=== PATIENT | female | born 1980 | race Caucasian/White ===

== ENCOUNTER → 2018-01-09 | Outpatient (CLI) | payer SELFPAY ==
[~2018-01-09] MED LIST: ACE3 PO; ACE500 PO; ALBU1.257 IH; ALBU8.5H IH; BUTA-324 PO; CEF300 PO; CELE-1 PO; CEPHALEXIN; CIP500 PO; CIPR-214 PO; CIT20 PO; CLO5 PO; CLON-298 PO; CLON-388 PO; CLON0.5T66 PO; CYC10 PO; CYCL10TA29 PO; D ME PO; FIO PO; GUAI120L3 PO; HYDR-385 PO; HYDR115S2 PO; HYDR50CA47 PO; IBU600 PO; IBUP-1487 PO; KET10 PO; LANS30CA70 PO; LEVO750T44 PO; LOR5 PO; LOR5/325 PO; MET10 PO; METH4TAB66 PO; METR-160 PO; NIF10 PO; NIT100 PO; OMEPRAZOLE; ONDA4TAB PO; ONDA4TAB97 PO; OXYC-865 PO; PER PO; PHEN200T32 PO; PHENA200 PO; PHENERGAN; PRED20TA6 PO; PRO25 PO; PROM-110 PO; PROM50TA23 PO; PSEU120T69 PO; REGLAN; SERT-181 PO; SERT-184 PO; SULF-198 PO; SUMA50TA34 PO; TRA50 PO; TRAM-420 PO; TRAM100T8 PO; Work Note; [UNRECOGNIZED DRUG - CODE] PO
--- NOTE | 2018-01-09 10:39 | RADIOLOGY IMAGING REPORT ---
FACILITY: [facility] PATIENT NAME: Ree Dixon : 1980 MR: [id number] V: [id number] EXAM DATE: ORDERING PHYSICIAN: JUAN CAMARA TECHNOLOGIST: Location: [facility] - [place], [place] Patient: Ree Dixon : 1980 Visit/Account:[id number] Date of Sevice: 01/09/2018 Exam type: VENOUS DOPP LOW RIGHT EXTREMIT History: Calf pain and tenderness, right leg Comparison: None. Findings: The right lower extremity veins were imaged including the right common femoral vein, greater saphenou s vein, superficial femoral vein, popliteal vein, posterior tibial vein, peroneal vein and anterior t ibial vein revealing no evidence intraluminal thrombi. The veins were compressible and demonstrated augmentation IMPRESSION: 1. No sonographic evidence DVT involving the right lower extremity veins Results were called to JUAN CAMARA at 01/09/2018 10:34 AM. Report Dictated By: Nela Luna MD at 01/09/2018 10:31 AM Report E-Signed By: Nela Luna MD at 01/09/2018 10:34 AM WSN:[email or web address]
== END ==
LOC: RAD 09:14
PROVIDERS: ATTEND Nurse Practitioner Primary Care
DX: M79.661 Pain in right lower leg (principal)

== ENCOUNTER → 2018-02-12 | Outpatient (CLI) | payer SELFPAY | LOC: LAB 09:09 | PROVIDERS: ATTEND Nurse Practitioner Primary Care | DX: R39.9 Unspecified symptoms and signs involving the genitourinary system (principal) | CPT/HCPCS: 81001 ==

== ENCOUNTER 2018-02-22 07:29 | Emergency (ER) | payer SELFPAY ==
[~2018-02-22 07:29] MED LIST changes: +OXYC-373 PO
--- NOTE | 2018-02-22 07:38 | ER Report ---
History and Physical Time Seen By MD: 07:34 HPI/ROS CHIEF COMPLAINT: Headache HISTORY OF PRESENT ILLNESS: Patient is a 37-year-old female who presents to the emergency department for evaluation of severe generalized headache. She describes the pain as 10 out of 10. It was fairly sudden on onset last evening and associated with nausea. Patient states the pain is a squeezing type in character and radiates into the neck bilaterally. Patient has a history of chronic TMJ for which she was prescribed tramadol. She has been seen in the clinic according to electronic medical record this past week for upper back pain which she believes is related to work. She has been prescribed both hydrocodone and oxycodone for treatment of this pain. She presents however with headache. Patient states she has a long-standing history of migraines but states that this feels somewhat different than her typical migraine in that it is bilateral rather than unilateral. She further states she's not had a migraine in some time. Patient reports that she is allergic to Imitrex. Patient also describes that the discomfort and tightness around the head also "dugan". She denies fever however. REVIEW OF SYSTEMS: Constitutional: No fever, no chills. Eyes: No discharge. ENT: No sore throat. Cardiovascular: No chest pain, no palpitations. Respiratory: No cough, no shortness of breath. Gastrointestinal: No abdominal pain, no vomiting. Nausea Genitourinary: No hematuria. Musculoskeletal: No back pain. Skin: No rashes. Neurological: Headache Allergies: Coded Allergies: Penicillins (Verified Allergy, Mild, RASH, 02/22/18) sumatriptan (Verified Allergy, Mild, RASH, 02/22/18) Home Meds Active Scripts Ketorolac Tromethamine (KETOROLAC TROMETHAMINE) 10 Mg Tab, 10 MG PO Q6H Y for PAIN, #12 TAB 0 Refills Prov:TOÑO ESCOBAR MD 02/22/18 Ondansetron (ZOFRAN ODT) 4 Mg Tab.rapdis, 4 MG PO Q8H Y for NAUSEA, #20 TAB 0 Refills TAKE 1 TABLET BY MOUTH EVERY 12 HOURS Prov:TOÑO ESCOBAR MD 02/22/18 Oxycodone Hcl/Acetaminophen (OXYCODONE-ACETAMINOPHEN 5-325) 1 Each Tablet, 1-2 EACH PO Q6-8H Y for PAIN, #30 TAB 0 Refills Prov:JUAN CAMARA CHET Ashraf DNP 02/18/18 Sertraline Hcl (SERTRALINE HCL) 50 Mg Tablet, 3 TAB PO QDAY for 90 Days, #270 TAB 0 Refills Prov:JUAN CAMARA CHET Ashraf DNP 02/12/18 Clonazepam (CLONAZEPAM) 0.5 Mg Tablet, 0.5-1 TAB PO BID Y for ANXIETY, #30 TAB 1 Refill Prov:JAXJUAN FOSTER DNP, FNP-BC 02/11/18 Tramadol Hcl (TRAMADOL HCL) 50 Mg Tablet, 1-2 TAB PO BID Y for PAIN, #120 TAB 2 Refills May fill on or after 01/30/18. Prov:JUAN CAMARA DNP, FNP-BC 01/22/18 Discontinued Scripts Methylprednisolone (METHYLPREDNISOLONE) 4 Mg Tab.ds.pk, 4 MG PO DIRECTED, #1 PACK 0 Refills Prov:JUAN CAMARA DNP, FNP-BC 02/12/18 Ketorolac Tromethamine (KETOROLAC TROMETHAMINE) 10 Mg Tab, 1 TAB PO Q6-8H Y for PAIN, #30 TAB 2 Refills Prov:JUAN CAMARA DNP, FNP-BC 10/03/17 Hydrocodone Bit/Acetaminophen (HYDROCODON-ACETAMINOPHEN 5-325) 1 Each Tablet, 1- 2 EACH PO Q6-8H Y for PAIN, #30 TAB 0 Refills Prov:JUAN CAMARA DNP, FNP-BC 02/12/18 [Work Note] No Conflict Check Patient was seen in the office today. Please excuse from work this morning. Prov:JAXJUAN DNP, FNP-BC 02/12/18 Past Medical/Surgical History Past medical history significant for migraines, history of reactive airways disease, history of ovarian cysts history of chronic urinary tract infections, history of musculoskeletal pain history of anxiety and depression. Past surgical history for cholecystectomy, partial hysterectomy, tubal ligation Hx Smoking: No Smoking Status: Former Smoker Exposure to Second Hand Smoke?: No Hx Substance Use Disorder: No Hx Alcohol Use: No Constitutional Vital Sign - Last 24 Hours 02/22/18 02/22/18 02/22/18 02/22/18 07:33 07:34 07:59 08:00 Temp 97.8 Pulse 96 73 Resp 28 B/P (MAP) 124/85 (98) 124/85 102/77 (85) Pulse Ox 96 96 O2 Delivery Room Air 02/22/18 02/22/18 02/22/18 02/22/18 08:19 08:29 08:30 08:35 Pulse 72 79 B/P (MAP) 106/65 (79) Pulse Ox 97 98 O2 Flow Rate 2.0 02/22/18 02/22/18 02/22/18 09:00 09:05 09:23 Pulse 69 B/P (MAP) 94/49 (64) 94/51 (65) Pulse Ox 99 Intake and Output 02/22/18 02/22/18 02/23/18 15:00 23:00 07:00 Intake Total 1000 ml Balance 1000 ml Physical Exam General/Constitutional: Patient is awake, alert, appears uncomfortable secondary to pain Head: Normocephalic atraumatic. Eyes: Conjunctival clear, Pupils are equal and reactive to light. Extraocular muscles are intact and symmetrical. Sclera are clear and anicteric. Ears:External canals are clear. Tympanic membranes are clear with normal landmarks and light reflex. Nares: No rhinorrhea Oropharyngeal: Mucous membranes are moist. There is no pharyngeal erythema or exudate. Neck: Supple, no adenopathy. Cardiovascular: Heart is regular rate and rhythm without audible murmurs, rubs or gallops. Pulmonary: Lungs are clear to auscultation bilaterally. There are no wheezes, rales, or rhonchi. Chest rise is symmetrical Abdomen: Soft, nontender, no guarding or peritoneal signs. Extremities: No gross deformities, No peripheral cyanosis. Able to move all 4 extremities. Neuro: Alert and oriented X3, Cranial nerves 2 thru 12 are intact and symmetrical. Skin: No rashes, skin is warm dry and well perfused. Medical Decision Making Data Points Result Diagram: 02/22/18 0737 02/22/18 0737 Laboratory Hematology Test 02/22/18 07:37 02/22/18 08:47 Red Blood Count 4.31 M/uL (4.17-5.56) Mean Corpuscular Volume 87.4 fL (80.0-96.0) Mean Corpuscular Hemoglobin 29.8 pg (26.0-33.0) Mean Corpuscular Hemoglobin Concent 34.0 g/dL (32.0-36.0) Red Cell Distribution Width 13.4 % (11.5-14.5) Mean Platelet Volume 9.5 fL (7.2-11.1) Neutrophils (%) (Auto) 55.6 % (39.4-72.5) Lymphocytes (%) (Auto) 32.8 % (17.6-49.6) Monocytes (%) (Auto) 8.5 % (4.1-12.4) Eosinophils (%) (Auto) 2.4 % (0.4-6.7) Basophils (%) (Auto) 0.7 % (0.3-1.4) Nucleated RBC Relative Count (auto) 0.0 /100WBC Neutrophils # (Auto) 3.1 K/uL (2.0-7.4) Lymphocytes # (Auto) 1.8 K/uL (1.3-3.6) Monocytes # (Auto) 0.5 K/uL (0.3-1.0) Eosinophils # (Auto) 0.1 K/uL (0.0-0.5) Basophils # (Auto) 0.0 K/uL (0.0-0.1) Nucleated RBC Absolute Count (auto) 0.00 K/uL Sodium Level 144 mmol/L (137-145) Potassium Level 4.1 mmol/L (3.5-5.0) Chloride Level 107 mmol/L (98-107) Carbon Dioxide Level 25 mmol/L (22-31) Blood Urea Nitrogen 16 mg/dl (7-18) Creatinine 0.80 mg/dl (0.52-1.04) Glomerular Filtration Rate Calc > 60.0 Random Glucose 92 mg/dl (75-110) Calcium Level 9.0 mg/dl (8.4-10.2) Human Chorionic Gonadotropin, Qual Negative (NEGATIVE) Urine Color Yellow Urine Clarity Slightly-cloudy Urine pH 6.0 pH (4.8-9.5) Urine Specific [place] 1.016 Urine Protein Negative mg/dL (NEGATIVE) Urine Glucose (UA) Negative mg/dL (NEGATIVE) Urine Ketones Negative mg/dL (NEGATIVE) Urine Blood Negative (NEGATIVE) Urine Nitrite Negative (NEGATIVE) Urine Bilirubin Negative (NEGATIVE) Urine Urobilinogen Negative mg/dL (0.2-1.9) Urine Leukocyte Esterase Negative (NEGATIVE) Urine RBC <1 /HPF (0-2/HPF) Urine WBC 1 /HPF (0-5/HPF) Urine Squamous Epithelial Cells Many /LPF (</=FEW) Urine Bacteria Negative /HPF (NONE-FEW) Urine Mucus Few /HPF (NONE-FEW) Chemistry Test 02/22/18 07:37 02/22/18 08:47 White Blood Count 5.5 k/uL (4.5-11.0) Red Blood Count 4.31 M/uL (4.17-5.56) Hemoglobin 12.8 g/dL (12.0-16.0) Hematocrit 37.7 % (34.0-47.0) Mean Corpuscular Volume 87.4 fL (80.0-96.0) Mean Corpuscular Hemoglobin 29.8 pg (26.0-33.0) Mean Corpuscular Hemoglobin Concent 34.0 g/dL (32.0-36.0) Red Cell Distribution Width 13.4 % (11.5-14.5) Platelet Count 238 K/uL (150-450) Mean Platelet Volume 9.5 fL (7.2-11.1) Neutrophils (%) (Auto) 55.6 % (39.4-72.5) Lymphocytes (%) (Auto) 32.8 % (17.6-49.6) Monocytes (%) (Auto) 8.5 % (4.1-12.4) Eosinophils (%) (Auto) 2.4 % (0.4-6.7) Basophils (%) (Auto) 0.7 % (0.3-1.4) Nucleated RBC Relative Count (auto) 0.0 /100WBC Neutrophils # (Auto) 3.1 K/uL (2.0-7.4) Lymphocytes # (Auto) 1.8 K/uL (1.3-3.6) Monocytes # (Auto) 0.5 K/uL (0.3-1.0) Eosinophils # (Auto) 0.1 K/uL (0.0-0.5) Basophils # (Auto) 0.0 K/uL (0.0-0.1) Nucleated RBC Absolute Count (auto) 0.00 K/uL Glomerular Filtration Rate Calc > 60.0 Calcium Level 9.0 mg/dl (8.4-10.2) Human Chorionic Gonadotropin, Qual Negative (NEGATIVE) Urine Color Yellow Urine Clarity Slightly-cloudy Urine pH 6.0 pH (4.8-9.5) Urine Specific [place] 1.016 Urine Protein Negative mg/dL (NEGATIVE) Urine Glucose (UA) Negative mg/dL (NEGATIVE) Urine Ketones Negative mg/dL (NEGATIVE) Urine Blood Negative (NEGATIVE) Urine Nitrite Negative (NEGATIVE) Urine Bilirubin Negative (NEGATIVE) Urine Urobilinogen Negative mg/dL (0.2-1.9) Urine Leukocyte Esterase Negative (NEGATIVE) Urine RBC <1 /HPF (0-2/HPF) Urine WBC 1 /HPF (0-5/HPF) Urine Squamous Epithelial Cells Many /LPF (</=FEW) Urine Bacteria Negative /HPF (NONE-FEW) Urine Mucus Few /HPF (NONE-FEW) Urinalysis Test 02/22/18 08:47 Urine Color Yellow Urine Clarity Slightly-cloudy Urine pH 6.0 pH (4.8-9.5) Urine Specific [place] 1.016 Urine Protein Negative mg/dL (NEGATIVE) Urine Glucose (UA) Negative mg/dL (NEGATIVE) Urine Ketones Negative mg/dL (NEGATIVE) Urine Blood Negative (NEGATIVE) Urine Nitrite Negative (NEGATIVE) Urine Bilirubin Negative (NEGATIVE) Urine Urobilinogen Negative mg/dL (0.2-1.9) Urine Leukocyte Esterase Negative (NEGATIVE) Urine RBC <1 /HPF (0-2/HPF) Urine WBC 1 /HPF (0-5/HPF) Urine Squamous Epithelial Cells Many /LPF (</=FEW) Urine Bacteria Negative /HPF (NONE-FEW) Urine Mucus Few /HPF (NONE-FEW) EKG/Imaging Imaging FACILITY: [facility] PATIENT NAME: Ree Dixon : 1980 MR: [id number] V: [id number] EXAM DATE: ORDERING PHYSICIAN: TOÑO ESCOBAR TECHNOLOGIST: Location: [facility] [place] Patient: Ree Dixon : 1980 Visit/Account:[id number] Date of Sevice: 02/22/2018 CT Head without contrast INDICATION: Headache COMPARISON: CT head 07/28/2016 TECHNIQUE: Axial CT images were obtained through the brain from the skull base to the vertex without administration of IV contrast. Dose Lowering Technique: One of the following dose optimization techniques was utilized in the performance of this exam: Automated exposure control; adjustment of the mA and/ or kV according to the patient's size; or use of an iterative reconstruction technique. Specific details can be referenced in the facility's radiology CT exam operational policy FINDINGS: Normal ventricular size and configuration. No evidence of mass, mass effect or midline shift. There is no acute intracranial hemorrhage or acute territorial infarction. Lopez-white cortical interfaces are well defined. Visualized paranasal sinuses and mastoid air cells are clear of fluid and mucosal thickening. IMPRESSION: Negative unenhanced CT of the head for intracranial hemorrhage, brain mass lesion, or acute brain infarction. Report Dictated By: Rosita Cooley MD at 02/22/2018 8:45 AM Report E-Signed By: Rosita Cooley MD at 02/22/2018 8:47 AM WSN:[email or web address] ED Course/Re-evaluation Clinical Indication for ER IV: Hydration, IV Access ED Course 02/22/2018 7:59:15 am patient with headache at this time somewhat atypical for her usual migraines. Plan will be IV Toradol Reglan and Benadryl we will also give Ativan for muscle relaxation. We will check CBC electrolytes test and urine. We will perform CT scan of the head. Re-evaluation 02/22/2018 8:36:44 am patient reports nausea is completely resolved at this point she reports some improvement in headache symptoms and at the "edge has been taken off"still having a fair amount of discomfort. Awaiting official results of CT scan. Blood work is unremarkable. 02/22/2018 8:58:57 am patient feels improved after 4 mg of IV morphine. She states the nausea is still improved. Plan at this time we will discharge patient home with a prescription for Zofran along with prescription for nonsteroidal anti-inflammatory pain medication Decision to Disposition Date: February 22, 2018 Decision to Disposition Time: 08:59 Depart Departure Latest Vital Signs Vital Signs Date Time Temp Pulse Resp B/P (MAP) Pulse Ox O2 Delivery O2 Flow Rate FiO2 02/22/18 09:23 94/51 (65) 02/22/18 09:05 69 99 02/22/18 08:19 2.0 5/25/18 07:34 97.8 28 Room Air Impression: Primary Impression: Head ache Condition: Improved Disposition: HOME OR SELF-CARE Referrals: JUAN CAMARA DNP, [employer]-BC (PCP) 2 Days if symptoms persist New Scripts Ketorolac Tromethamine (KETOROLAC TROMETHAMINE) 10 Mg Tab 10 MG PO Q6H Y for PAIN, #12 TAB 0 Refills Prov: TOÑO ESCOBAR MD 02/22/18 Ondansetron (ZOFRAN ODT) 4 Mg Tab.rapdis 4 MG PO Q8H Y for NAUSEA, #20 TAB 0 Refills TAKE 1 TABLET BY MOUTH EVERY 12 HOURS Prov: TOÑO ESCOBAR MD 02/22/18 Patient Instructions: Acute Headache (ED) Additional Instructions: Take your medications as prescribed. If her symptoms do not improve in 48 hours follow-up with her primary care provider. If at any time if symptoms worsen or he develop fever I should be reevaluated in the emergency department immediately. Problem Qualifiers Primary Impression: Head ache Headache type: unspecified Headache chronicity pattern: acute headache Intractability: not intractable Qualified Codes: R51 - Headache TOÑO ESCOBAR MD February 22, 2018 07:38
[2018-02-22] MEDS ORDERED: METOCLOPRAMIDE 10 MG/2 ML SDV IVP ONE (07:55)
[2018-02-22] MEDS ORDERED: diphenhydrAMINE 50 MG/ML VIAL IVP ONE (07:55)
[2018-02-22] MEDS ORDERED: KETOROLAC 15 MG/ML VIAL IVP ONE (07:55)
[2018-02-22] MEDS ORDERED: LORazepam 2 MG/ML VIAL IVP ONE (07:55)
[2018-02-22 08:03] LABS: PLATELET COUNT, AUTOMATED 238 K/uL (150-450)
[2018-02-22] MEDS ORDERED: NS(*) 0.9% 1000 ML BAG 1,000 ML IV ONE (08:05)
[2018-02-22] MEDS ORDERED: MORPHINE 4 MG/ML SDV IVP ONE (08:40)
--- NOTE | 2018-02-22 08:52 | RADIOLOGY IMAGING REPORT ---
FACILITY: [facility] PATIENT NAME: Ree Dixon : 1980 MR: [id number] V: [id number] EXAM DATE: ORDERING PHYSICIAN: TOÑO ESCOBAR TECHNOLOGIST: [place] [facility] [place]e [place] : 1980 Visit/Account:[id number] Date of Sevice: 02/22/2018 CT Head without contrast INDICATION: Headache COMPARISON: CT head 07/28/2016 TECHNIQUE: Axial CT images were obtained through the brain from the skull base to the vertex without administration of IV contrast. Dose Lowering Technique: One of the following dose optimization techniques was utilized in the performance of this exam: Autom ated exposure control; adjustment of the mA and/or kV according to the patient's size; or use of an i terative reconstruction technique. Specific details can be referenced in the facility's radiology C T exam operational policy FINDINGS: Normal ventricular size and configuration. No evidence of mass, mass effect or midline s hift. There is no acute intracranial hemorrhage or acute territorial infarction. Lopez-white cortical interfaces are well defined. Visualized paranasal sinuses and mastoid air cells are clear of fluid and mucosal thickening. IMPRESSION: Negative unenhanced CT of the head for intracranial hemorrhage, brain mass lesion, or acute brain inf arction. Report Dictated By: Rosita Cooley MD at 02/22/2018 8:45 AM Report E-Signed By: Rosita Cooley MD at 02/22/2018 8:47 AM WSN:[email or web address]
[2018-02-22] MEDS ORDERED: ONDA4TAB PO (09:01)
[2018-02-22] MEDS ORDERED: KET10 PO (09:01)
[2018-02-22 09:23] VITALS: BP 94/51
[2018-02-27] MEDS ORDERED: Work Note (14:04)
[2018-02-27] MEDS ORDERED: KET10 PO (14:05)
== END 2018-02-22 09:23 | disposition home or self-care (01) ==
LOC: ER 07:30
DX: R51 Headache (principal)
CPT/HCPCS: 70450; 81001; 84703; 85025; 96361; 96374; 96375; 99284; J1885; J2060; J2270; J2765; J7030; 82310; 82374; 82435; 82565; 82947; 84132; 84295; 84520

== ENCOUNTER → 2018-02-26 | Outpatient (CLI) | payer SELFPAY ==
--- NOTE | 2018-02-26 23:44 | RADIOLOGY IMAGING REPORT ---
FACILITY: [facility] [place] PATIENT NAME: Ree Dixon : 1980 MR: [id number] V: [id number] EXAM DATE: ORDERING PHYSICIAN: JUAN CAMARA TECHNOLOGIST: Location: [facility] Patient: Ree Dixon : 1980 Visit/Account:[id number] Date of Sevice: 02/26/2018 CERVICAL SPINE MIN 4 VIEW HISTORY: Migraines since . Neck and upper back pain for 2 weeks. COMPARISON: CT cervical spine 04/12/2012. Thoracic spine x-rays were performed concurrently. TECHNIQUE: AP, right and left oblique oblique, odontoid, and lateral views of the cervical spine. FINDINGS: On the lateral view, C1 to the top of T1 are visible. There is straightening of the normal cervical lordosis. There is no fracture or dislocation. There is no listhesis. Prevertebral soft tiss ues are within normal limits. The odontoid is mildly limited in evaluation on the AP views due to pat ient's teeth and skull projecting over it. The lateral masses of C1 are well seated on C2. Neural for mile are patent. There is apparent mild narrowing of the left C3-4 neural foramen, although the appe arance may be positional. IMPRESSION: 1. Straightening of the normal cervical lordosis may be positional or due to muscle spasm. 2. Questionable mild narrowing of the left C3-4 neural foramen. 3. No acute osseous normality of the cervical spine. Report Dictated By: Mi Kelly at 02/26/2018 11:37 PM Report E-Signed By: Mi Kelly at 02/26/2018 11:41 PM WSN:[id number]
--- NOTE | 2018-02-27 00:12 | RADIOLOGY IMAGING REPORT ---
FACILITY: [facility] [place] PATIENT NAME: Ree Dixon : 1980 MR: [id number] V: [id number] EXAM DATE: ORDERING PHYSICIAN: JUAN CAMARA TECHNOLOGIST: Location: [facility] Patient: Ree Dixon : 1980 Visit/Account:[id number] Date of Sevice: 02/26/2018 THORACIC SPINE 2 VIEWS HISTORY: Migraine since . Neck and upper back pain for 2 weeks. COMPARISON: Chest x-ray 06/12/2016. CT cervical spine was performed concurrently. TECHNIQUE: AP and lateral views of the thoracic spine. FINDINGS: There is no fracture or dislocation. Vertebral body heights are maintained. No listhesis. T here is a mild leftward curvature of the lower thoracic spine, new. There is minimal degenerative farzaneh nge of the mid thoracic spine, unchanged. IMPRESSION: 1. No acute osseous abnormality of the thoracic spine. 2. Mild leftward curvature of the mid to lower thoracic spine. Report Dictated By: Mi Kelly at 02/26/2018 11:41 PM Report E-Signed By: Mi Kelly at 02/27/2018 12:09 AM WSN:[id number]
== END ==
LOC: RAD 17:11
PROVIDERS: ATTEND Nurse Practitioner Primary Care
DX: M48.02 Spinal stenosis, cervical region (principal)
CPT/HCPCS: 72050; 72072

== ENCOUNTER → 2018-09-06 | Outpatient (CLI) | payer SELFPAY ==
[~2018-09-06] MED LIST changes: -CLON-298 PO; +CLON-331 PO; +META-1 PO; -METR-160 PO; +METR500T54 PO
[2018-09-06 10:13] LABS: LDL CHOLESTEROL 51 mg/dl
== END ==
LOC: LAB 09:33
PROVIDERS: ATTEND Nurse Practitioner Primary Care
DX: Z13.220 Encounter for screening for lipoid disorders (principal); M26.629 Arthralgia of temporomandibular joint, unspecified side
CPT/HCPCS: 36415; 82040; 82247; 82310; 82374; 82435; 82465; 82565; 82947; 83718; 84075; 84132; 84155; 84295; 84450; 84460; 84478; 84520

== ENCOUNTER 2018-11-07 16:20 | Emergency (ER) | payer SELFPAY ==
[~2018-11-07 16:20] MED LIST changes: +BACL-1 PO; +METR500T15 PO; -METR500T54 PO; +OSE75 PO
--- NOTE | 2018-11-07 16:37 | ER Report ---
History and Physical Time Seen By MD: 16:29 Hx. of Stated Complaint: pt presents with n/v /d since sunday. Also has fever, sinus congestion. Her children all have been dx with flu A. Now has severe h/a HPI/ROS CHIEF COMPLAINT: Headache, TMJ pain, cough, nausea and vomiting. HISTORY OF PRESENT ILLNESS: 38-year-old female patient presents to emergency room with complaint of headache, TMJ pain, cough, nausea and vomiting. Patient states this been going on for the past 3 days. She states that her pain has been so bad she is not been able to keep any food down. She denies having any fevers or chills. Patient states her kids are home sick, she has one that a fever 103 and was diagnosed with influenza. She states the pain since so bad that she's not been able to take care of her daughter. Patient denies being able to take her medication. Patient states that she has had improvement in the past with morphine for her headaches. She states that her pain is an 8 out of 10. She states that his been nothing spilled due to keep her pain medication down. She typically takes tramadol at home. Patient states pain starts at her TMJ, goes to the back of her head and up to her forehead. REVIEW OF SYSTEMS: Respiratory: No cough, no dyspnea. Cardiovascular: No chest pain, no palpitations. Gastrointestinal: No vomiting, no abdominal pain. Musculoskeletal: As noted above Allergies: Coded Allergies: Penicillins (Verified Allergy, Mild, RASH, 11/07/18) sumatriptan (Verified Allergy, Mild, RASH, 11/07/18) Home Meds Active Scripts Tramadol Hcl (TRAMADOL HCL) 50 Mg Tablet, 1-2 TAB PO BID PRN for PAIN, #120 TAB 2 Refills Prov:JUAN CAMARA DNP [facility] 10/21/18 Baclofen (BACLOFEN) 10 Mg Tablet, 1 TAB PO BID, #60 TAB 0 Refills Prov:JUAN CAMARA DNP [facility] 10/14/18 Clonazepam (CLONAZEPAM) 0.5 Mg Tablet, 0.5-1 TAB PO BID PRN for ANXIETY, #45 TAB 2 Refills Prov:JUAN CAMARA DNP [facility] 07/22/18 Sertraline Hcl (SERTRALINE HCL) 50 Mg Tablet, 2 TAB PO QDAY for 90 Days, #270 TAB 0 Refills Prov:JUAN CAMARA DNP, [facility] 07/22/18 Discontinued Scripts Promethazine Hcl (PROMETHAZINE HCL) 25 Mg Tablet, 1 TAB PO Q8H PRN for NAUSEA/VOMITING, #5 TAB 0 Refills Prov:RONALDO HANSEN APRN [facility]- 11/07/18 Oseltamivir Phosphate (TAMIFLU) 75 Mg Cap, 1 CAP PO BID, #10 CAP 0 Refills Prov:RONALDO HANSEN APRN [facility] 11/07/18 Levofloxacin 750 Mg Tab (LEVAQUIN 750 MG TAB) 750 Mg Tablet, 1 TAB PO QDAY for 7 Days, #7 TAB 0 Refills Prov:JUAN CAMARA DNP, [facility] 10/14/18 Oxycodone Hcl/Acetaminophen (OXYCODONE-ACETAMINOPHEN 5-325) 1 Each Tablet, 1-2 TAB PO Q6-8H PRN for PAIN, #20 TAB 0 Refills Prov:JUAN CAMARA DNP, [facility] 10/14/18 Ketorolac Tromethamine (KETOROLAC TROMETHAMINE) 10 Mg Tab, 1 TAB PO Q6-8H PRN for PAIN, #30 TAB 2 Refills Prov:JUAN CAMARA DNP, [facility] 07/26/18 Past Medical/Surgical History Patient has a past medical history of migraines, asthma, cholecystitis, frequent UTI, severe TMJ, bilateral wrist fractures, depression, anxiety. Patient has a surgical history of cholecystectomy, hysterectomy, tubal ligation. Reviewed Nurses Notes: Yes Hx Smoking: No Smoking Status: Former Smoker Exposure to Second Hand Smoke?: No Hx Substance Use Disorder: No Hx Alcohol Use: No Constitutional Vital Sign - Last 24 Hours 11/07/18 11/07/18 11/07/18 11/07/18 16:25 16:26 16:30 16:50 Temp 97.7 Pulse 85 77 Resp 16 B/P (MAP) 115/72 115/72 (86) 106/71 (83) Pulse Ox 98 97 O2 Delivery Room Air 11/07/18 11/07/18 11/07/18 17:00 17:20 17:30 Pulse 83 B/P (MAP) 92/68 (76) 93/63 (73) Pulse Ox 100 Physical Exam General Appearance: The patient is alert, has no immediate need for airway protection and no current signs of toxicity. Respiratory: Chest is non tender, lungs are clear to auscultation. Cardiac: regular rate and rhythm Gastrointestinal: Abdomen is soft and non tender, no masses, bowel sounds normal. Musculoskeletal: Neck: Neck is supple and non tender. Extremities have full range of motion and are non tender. Skin: No rashes or lesions. Neuro: Patient is alert and oriented 4. DIFFERENTIAL DIAGNOSIS: After history and physical exam differential diagnosis was considered for headache including but not limited to subarachnoid hemorrhage, migraine headache, tension headache and infectious causes such as meningitis, pharyngitis and sinusitis. Medical Decision Making Data Points Result Diagram: 11/07/18 1714 11/07/18 1714 Laboratory Hematology Test 11/07/18 17:14 11/07/18 17:20 Red Blood Count 4.60 M/uL (4.17-5.56) Mean Corpuscular Volume 88.6 fL (80.0-96.0) Mean Corpuscular Hemoglobin 29.0 pg (26.0-33.0) Mean Corpuscular Hemoglobin Concent 32.7 g/dL (32.0-36.0) Red Cell Distribution Width 13.1 % (11.5-14.5) Mean Platelet Volume 10.6 fL (7.2-11.1) Neutrophils (%) (Auto) 59.3 % (39.4-72.5) Lymphocytes (%) (Auto) 31.1 % (17.6-49.6) Monocytes (%) (Auto) 6.6 % (4.1-12.4) Eosinophils (%) (Auto) 2.0 % (0.4-6.7) Basophils (%) (Auto) 1.0 % (0.3-1.4) Nucleated RBC Relative Count (auto) 0.0 /100WBC Neutrophils # (Auto) 2.6 K/uL (2.0-7.4) Lymphocytes # (Auto) 1.4 K/uL (1.3-3.6) Monocytes # (Auto) 0.3 K/uL (0.3-1.0) Eosinophils # (Auto) 0.1 K/uL (0.0-0.5) Basophils # (Auto) 0.0 K/uL (0.0-0.1) Nucleated RBC Absolute Count (auto) 0.00 K/uL Sodium Level 140 mmol/L (137-145) Potassium Level 4.0 mmol/L (3.5-5.0) Chloride Level 112 mmol/L (98-107) Carbon Dioxide Level 26 mmol/L (22-31) Blood Urea Nitrogen 12 mg/dl (7-18) Creatinine 0.70 mg/dl (0.52-1.04) Glomerular Filtration Rate Calc > 60.0 Random Glucose 81 mg/dl (75-110) Calcium Level 8.9 mg/dl (8.4-10.2) Total Bilirubin 1.0 mg/dl (0.2-1.3) Aspartate Amino Transf (AST/SGOT) 21 U/L (0-35) Alanine Aminotransferase (ALT/SGPT) 21 U/L (0-56) Alkaline Phosphatase 50 U/L (0-126) Total Protein 7.2 g/dl (6.3-8.2) Albumin 4.0 g/dl (3.5-5.0) Influenza Virus Type A (PCR) Negative (NEGATIVE) Influenza Virus Type B (PCR) Negative (NEGATIVE) Chemistry Test 11/07/18 17:14 11/07/18 17:20 White Blood Count 4.4 k/uL (4.5-11.0) Red Blood Count 4.60 M/uL (4.17-5.56) Hemoglobin 13.3 g/dL (12.0-16.0) Hematocrit 40.8 % (34.0-47.0) Mean Corpuscular Volume 88.6 fL (80.0-96.0) Mean Corpuscular Hemoglobin 29.0 pg (26.0-33.0) Mean Corpuscular Hemoglobin Concent 32.7 g/dL (32.0-36.0) Red Cell Distribution Width 13.1 % (11.5-14.5) Platelet Count 227 K/uL (150-450) Mean Platelet Volume 10.6 fL (7.2-11.1) Neutrophils (%) (Auto) 59.3 % (39.4-72.5) Lymphocytes (%) (Auto) 31.1 % (17.6-49.6) Monocytes (%) (Auto) 6.6 % (4.1-12.4) Eosinophils (%) (Auto) 2.0 % (0.4-6.7) Basophils (%) (Auto) 1.0 % (0.3-1.4) Nucleated RBC Relative Count (auto) 0.0 /100WBC Neutrophils # (Auto) 2.6 K/uL (2.0-7.4) Lymphocytes # (Auto) 1.4 K/uL (1.3-3.6) Monocytes # (Auto) 0.3 K/uL (0.3-1.0) Eosinophils # (Auto) 0.1 K/uL (0.0-0.5) Basophils # (Auto) 0.0 K/uL (0.0-0.1) Nucleated RBC Absolute Count (auto) 0.00 K/uL Glomerular Filtration Rate Calc > 60.0 Calcium Level 8.9 mg/dl (8.4-10.2) Total Bilirubin 1.0 mg/dl (0.2-1.3) Aspartate Amino Transf (AST/SGOT) 21 U/L (0-35) Alanine Aminotransferase (ALT/SGPT) 21 U/L (0-56) Alkaline Phosphatase 50 U/L (0-126) Total Protein 7.2 g/dl (6.3-8.2) Albumin 4.0 g/dl (3.5-5.0) Influenza Virus Type A (PCR) Negative (NEGATIVE) Influenza Virus Type B (PCR) Negative (NEGATIVE) EKG/Imaging Imaging Examination: CHEST PA LAT Comparison: 06/12/2016 and earlier. History: shortness of breath Findings: No consolidation, nodule, or peribronchial inflammation. No pneumothorax, edema, or effusion. Cardiac and hilar contour size is normal. Osseous structures are intact. IMPRESSION: Negative chest. Report Dictated By: Charly Adler MD at 11/07/2018 6:01 PM Report E-Signed By: Charly Adler MD at 11/07/2018 6:03 PM ED Course/Re-evaluation ED Course Patient was admitted to exam room, history and physical were obtained. Differential diagnoses were considered. On examination lungs are clear, heart is regular, abdomen soft nontender. An IV was started, CBC, CMP were done. Patient has exposure to influenza and so influenza screen was done. The results were unremarkable for the lab work and negative for the influenza screen. Chest x-ray was done patient having a productive cough. That was also negative. After patient had received Toradol 15 mg, Reglan 10 mg and Ativan 0.5 mg IV I waited approximately 35 minutes. I went into the room to reevaluate the patient. She was not there. I assume that she got to the bathroom. I went and evaluated the patient, when I came back I noted that she again was not there, however the IV bag was there and was dripping, the gown was on the chair. I did look through the bedding and found the IV that she taken out. Patient had eloped sometime after receiving the medication and before I reevaluated her. Decision to Disposition Date: Nov 07, 2018 Decision to Disposition Time: 18:31 Depart Departure Latest Vital Signs Vital Signs Date Time Temp Pulse Resp B/P (MAP) Pulse Ox O2 Delivery O2 Flow Rate FiO2 11/07/18 17:30 93/63 (73) 11/07/18 17:20 83 100 11/07/18 16:25 97.7 16 Room Air Impression: Primary Impression: Head ache Additional Impression: TMJ inflammation Condition: Improved Disposition: AGAINST MED ADV / DISCONT CARE Referrals: JUAN CAMARA DNP, [employer] (PCP) Problem Qualifiers Primary Impression: Head ache Headache type: tension-type Headache chronicity pattern: acute headache Intractability: not intractable Qualified Codes: G44.209 - Tension-type headache, unspecified, not intractable ORLANDO VALLEJO Nov 07, 2018 16:37
[2018-11-07] MEDS ORDERED: METOCLOPRAMIDE 10 MG/2 ML SDV IVP ONE (16:55)
[2018-11-07] MEDS ORDERED: KETOROLAC 15 MG/ML VIAL IVP ONE (16:55)
[2018-11-07] MEDS ORDERED: NS(*) 0.9% 1000 ML BAG 1,000 ML IV ONE (16:55)
[2018-11-07] MEDS ORDERED: LORazepam 2 MG/ML VIAL IVP ONE (16:55)
[2018-11-07 17:30] VITALS: BP 93/63
[2018-11-07 17:49] LABS: PLATELET COUNT, AUTOMATED 227 K/uL (150-450)
--- NOTE | 2018-11-07 18:07 | RADIOLOGY IMAGING REPORT ---
FACILITY: [facility] PATIENT NAME: Ree Dixon : 1980 MR: [id number] V: [id number] EXAM DATE: ORDERING PHYSICIAN: ORLANDO VALLEJO TECHNOLOGIST: [place] [facility] [place] Ree [place] : 1980 Visit/Account:[id number] Date of Sevice: 11/07/2018 Examination: CHEST PA LAT Comparison: 06/12/2016 and earlier. History: shortness of breath Findings: No consolidation, nodule, or peribronchial inflammation. No pneumothorax, edema, or effusio n. Cardiac and hilar contour size is normal. Osseous structures are intact. IMPRESSION: Negative chest. Report Dictated By: Charly Adler MD at 11/07/2018 6:01 PM Report E-Signed By: Charly Adler MD at 11/07/2018 6:03 PM WSN:[id number]
[2018-11-11] MEDS ORDERED: KET10 PO (11:26)
[2018-11-11] MEDS ORDERED: OXYC-373 PO (11:26)
[2018-11-11] MEDS ORDERED: KETO30CA16 IM (11:26)
== END 2018-11-07 18:10 | disposition left against medical advice (07) ==
LOC: ER 16:25
DX: G44.209 Tension-type headache, unspecified, not intractable (principal); M26.69 Other specified disorders of temporomandibular joint
CPT/HCPCS: 71046; 85025; 87502; 96361; 96374; 96375; 99284; J1885; J2060; J2765; J7030; 82040; 82247; 82310; 82374; 82435; 82565; 82947; 84075; 84132; 84155; 84295; 84450; 84460; 84520